=== PATIENT | male | born 1975 | race Caucasian/White ===

== ENCOUNTER 2018-08-11 11:28 | Emergency (ER) | payer OTHER ==
--- NOTE | 2018-08-11 11:32 | PDOC ---
History of Present Illness - General Chief Complaint: Pain Stated Complaint: LEFT KNEE PAIN Time Seen by Provider: 08/11/18 11:31 History Source: Patient, Family (son gas leak tester) Exam Limitations: No Limitations - History of Present Illness Initial Comments: 08/11/18 11:48 43 yo male pmh smoking and alcohol abuse presents to the ED for sudden onset left knee swelling that started 1 week ago. Pt states he was kneeling on the left knee on hardwood floors for work and after standing noticed sudden onset knee swelling without pain. Over the course of the week the swelling improved somewhat and denies pain at any time but was concerned about the swelling so he decided to come in. Pt did not take any OTC medications and did not see any other Physician for this concern. Denies F/C, changes or difficulty ambulating, weakness/sensory changes in the left leg or foot. Past History - Past Medical History Allergies/Adverse Reactions: Allergies Allergy/AdvReac Type Severity Reaction Status Date / Time No Known Allergies Allergy Verified 08/11/18 11:31 Home Medications: Ambulatory Orders No Home Medications 0 dose .ROUTE UTDICT 09/20/13 Thyroid Disease: No - Suicide/Smoking/Psychosocial Hx Smoking History: Current some day smoker Number of Cigarettes Smoked Daily: 10 Substance Use Type: None Review of Systems - Review of Systems Constitutional: No: Chills, Fever Musculoskeletal: No: Joint Pain, Muscle Weakness Integumentary: Yes: Other (swelling over left pre patellar region). No: Bruising Neurological: No: Numbness, Paresthesia, Tingling, Weakness, Unsteady Gait *Physical Exam - Physical Exam General Appearance: Yes: Nourished, Appropriately Dressed. No: Apparent Distress HEENT: positive: EOMI Respiratory/Chest: positive: Lungs Clear, Normal Breath Sounds Cardiovascular: positive: Regular Rhythm, Regular Rate, S1, S2. negative: Edema , JVD, Murmur Vascular Pulses: Dorsalis-Pedis (R): 3+, Doralis-Pedis (L): 3+ Extremity: positive: Normal Capillary Refill, Other (negative anterior, posterior drawer neg medial and lateral lig laxity, negative nata ). negative: Calf Tenderness Integumentary: positive: Normal Color, Dry, Warm Neurologic: positive: Fully Oriented, Alert, Normal Mood/Affect, Normal Response , Motor Strength 5/5 Medical Decision Making - Medical Decision Making 08/11/18 12:02 43 yo male presents to the ED with 1 weak of left knee swelling after kneeling without F/C, pain or changes in sensation/strength. Exam: AOX3 NAD left infrapatellar swelling without erythema, heat or pain. Normal ROM in all planes Negative orthopedic exam for ligament laxity/damage Equal sensation, pulses and strength bilateral lower ext Vitals WNL, no fever 3 view X ray no acute pathology DC with PCP and Ortho follow up along with NILESH bandage, RICE precautions and NSAIDS for swelling *DC/Admit/Observation/Transfer Diagnosis at time of Disposition: Bursitis Qualifiers: Bursitis location: knee Knee bursitis location: infrapatellar bursitis Laterality: left Qualified Code(s): M70.52 - Other bursitis of knee, left knee - Discharge Dispostion Condition at time of disposition: Good Decision to Admit order: No - Referrals Referrals: Kishor Gorman DO [Staff Physician] - - Patient Instructions Printed Discharge Instructions: DI for Bursitis Additional Instructions: Please make an appointment with your primary care doctor and the Orthopedic Surgeon referred to you within the next 24-48 hours. Rest, Ice, Compress and Elevate the knee for the next 1 week. Take over the counter Motrin every 6 hours for swelling. Use an NILESH bandage to compress the knee but take it off before bed time. Return to the emergency department for any new or worsening symptoms including but not limited to: worsening swelling leading to discoloration, heat, pain, inability to walk, fevers or chills or weakness/sensory changes in the left leg or foot. Thank you - Post Discharge Activity
--- NOTE | 2018-08-11 11:35 | PDOC ---
Attending Attestation - Resident Resident Name: Darell Freire - ED Attending Attestation I have performed the following: I have examined & evaluated the patient, The case was reviewed & discussed with the resident, I agree w/resident's findings & plan - HPI HPI: 08/11/18 11:50 43 y/o male with left knee pain for 1 week. Was working on knee and when he got up noticed large amount of swelling, Has not taken anything for the pain. No fall or trauma. No "pop" sound. Denies fever or chills. - Physicial Exam PE: 08/11/18 11:51 VSS Heart: RRR w/o murmur Lungs: CTA b/l, no wheezes EXT left knee full ROM, no tenderness, below knee swelling to the pretibial area , non tender, no fluctuance noted Nuero: grossly intact no focal deficits noted - Medical Decision Making 08/11/18 12:14 X-ray left knee: no fracture It appears pt has prepatelllar bursitis, will treat with NSAIDS Thomas wrap, follow up with Orthopedics If worsen return to ER Agree with resident plan Dr. Freire Findal diagnosis: Prepatellar bursitis
[2018-08-11 11:41] VITALS: BP 146/90; PULSE 90; TEMP 98.7; BMI 25.1
== END 2018-08-11 12:26 | disposition home or self-care (01) ==
LOC: FER 11:28
DX: M70.52 Other bursitis of knee, left knee (principal); F17.210 Nicotine dependence, cigarettes, uncomplicated; F10.10 Alcohol abuse, uncomplicated
CPT/HCPCS: 73562-TC-LT-FY; 99282-25

== ENCOUNTER 2022-10-05 12:09 | Inpatient (IN) | payer OTHER ==
[2022-10-05 12:18] VITALS: BMI 25.9
[2022-10-05] MEDS ORDERED: IBUPROFEN 600 MG TABLET (FP) PO ONE (12:38)
[2022-10-05] MEDS ORDERED: morphine CARPU-JECT 4 MG/1 ML DISP.SYRIN IVPUSH ONE ×2 (12:56→14:13)
[2022-10-05] MEDS ORDERED: morphine SULFATE 4 MG/ML VIAL ONE ×2 (13:13→14:14)
[2022-10-05 13:51] LABS: INR 1.17 (0.83-1.09); PROTHROMBIN TIME (PATIENT) 13.5 SEC (9.7-13.0)
[2022-10-05 13:53] LABS: HEMATOCRIT 31.9 % (35.4-49); HEMOGLOBIN 10.6 G/dL (11.7-16.9); MCHC 33.2 g/dl (32.0-35.9); MEAN CELL VOLUME 84.5 fl (80-96); MEAN PLT VOLUME 8.4 fl (7.5-11.1); PLATELET COUNT 377.1 10^3/uL (134-434); RBC 3.78 10^6/uL (4.00-5.60); WHITE BLOOD COUNT 8.5 10^3/uL (4.0-10.8)
[2022-10-05 13:54] LABS: ACTIVATED PTT 32.9 SECONDS (25.2-36.5)
[2022-10-05 13:56] LABS: PLATELET ESTIMATE ADEQUATE
[2022-10-05 13:59] LABS: ALBUMIN 3.1 g/dl (3.4-5.0); BILIRUBIN,TOTAL 1.1 mg/dl (0.2-1); CALCIUM 8.6 mg/dl (8.5-10); CREATININE 0.7 mg/dl (0.55-1.3); TOT PROT 7.3 g/dl (6.4-8.2)
[2022-10-05] MEDS ORDERED: LIDOCAINE HCL 1%, 10 MG/ML (20ML VIAL) ONE (14:09)
[2022-10-05] MEDS ORDERED: AZITHROMYCIN IVPB 500 MG in DEXTROSE 5%-WATER - 250 ML IVPB ONE (15:39)
[2022-10-05] MEDS ORDERED: cefTRIAXone SODIUM 1 GM VIAL ONE (15:47)
[2022-10-05] MEDS ORDERED: AZITHROMYCIN 500 MG VIAL IVPB ONE (15:47)
[2022-10-05] MEDS: NICOTINE 21 MG/24 HOURS TOPICAL PATCH TD SCH (16:30)
[2022-10-05] MEDS ORDERED: SODIUM CHLORIDE 1,000 ML IV STA (18:46)
[2022-10-05] MEDS ORDERED: DEXTROSE 5%-NORMAL SALINE 1,000 ML IV SCH (20:15)
[2022-10-05] MEDS ORDERED: ACETAMINOPHEN 1000 MG/100 ML BAG IVPB PRN (20:19)
[2022-10-05] MEDS ORDERED: guaiFENesin/D-METHORPHAN HB 10 ML UNIT-DOSE CUPS PO PRN (20:25)
[2022-10-06] MEDS ORDERED: morphine SULFATE 4 MG/ML VIAL ONE (01:50)
[2022-10-06] MEDS: DOCUSATE SODIUM 100 MG CAPSULE (FP) PO SCH ×4 (01:54→22:06)
[2022-10-06] MEDS: morphine SULFATE 4 MG/ML VIAL IVPUSH PRN ×2 (01:55→20:31)
[2022-10-06 08:44] LABS: CREATININE 0.6 mg/dl (0.55-1.3); MAGNESIUM 1.7 mg/dL (1.8-2.4); PHOSPHOROUS 2.7 mg/dl (2.5-4.9)
[2022-10-06] MEDS ORDERED: MAGNESIUM SULF 50% (8.12 MEQ/2 ML-1 GM VIAL) IVPB ONE (09:13)
[2022-10-06] MEDS: NICOTINE 21 MG/24 HOURS TOPICAL PATCH TD SCH (09:30)
[2022-10-06] MEDS ORDERED: MAGNESIUM 1GM/D5W - 1 GM/100 ML IVPB IVPB ONE (09:30)
[2022-10-06 09:47] LABS: BASO % 0.8 % (0-2.0); EOS % 3.1 % (0-4.5); HEMATOCRIT 29.8 % (35.4-49); HEMOGLOBIN 9.5 GM/dL (11.7-16.9); LYMPH % 22.3 % (8-40); MCH 26.8 pg (25.7-33.7); MEAN CELL VOLUME 83.6 fl (80-96); MEAN PLT VOLUME 8.5 fl (7.5-11.1); MONO % 5.9 % (3.8-10.2); NEUT % 67.9 % (42.8-82.8); PLATELET COUNT 383 10^3/uL (134-434); RBC 3.56 M/mm3 (4.00-5.60); RDW 27.7 % (11.9-15.9); WHITE BLOOD COUNT 9.5 K/mm3 (4.0-10.0)
[2022-10-06] MEDS: CEFTRIAXONE 1 GM in DEXTROSE 5%-WATER - 50 ML IVPB SCH (10:17)
[2022-10-06 10:59] LABS: ANISOCYTOSIS 1+; MACROCYTOSIS 0
[2022-10-06] MEDS: AZITHROMYCIN IVPB 500 MG/250 ML BAG IVPB SCH (11:22)
[2022-10-07] MEDS: ACETAMINOPHEN 1000 MG/100 ML BAG IVPB SCH ×3 (09:27→20:52)
[2022-10-07] MEDS: KETOROLAC TROMETHAMINE 30 MG/1 ML VIAL IVPUSH SCH ×2 (10:37→18:31)
[2022-10-07] MEDS: DOCUSATE SODIUM 100 MG CAPSULE (FP) PO SCH ×3 (10:38→21:01)
[2022-10-07] MEDS: NICOTINE 21 MG/24 HOURS TOPICAL PATCH TD SCH (10:38)
[2022-10-07] MEDS: CEFTRIAXONE 1 GM in DEXTROSE 5%-WATER - 50 ML IVPB SCH (10:38)
[2022-10-07 11:28] LABS: BASO % 1.2 % (0-2.0); EOS % 5.5 % (0-4.5); HEMATOCRIT 32.2 % (35.4-49); HEMOGLOBIN 10.3 GM/dL (11.7-16.9); LYMPH % 17.8 % (8-40); MCH 26.4 pg (25.7-33.7); MCHC 31.9 g/dl (32.0-35.9); MEAN CELL VOLUME 82.7 fl (80-96); MEAN PLT VOLUME 7.6 fl (7.5-11.1); MONO % 7.2 % (3.8-10.2); NEUT % 68.3 % (42.8-82.8); PLATELET COUNT 393 10^3/uL (134-434); RBC 3.89 M/mm3 (4.00-5.60); RDW 27.5 % (11.9-15.9); WHITE BLOOD COUNT 7.7 K/mm3 (4.0-10.0)
[2022-10-07 11:44] LABS: CALCIUM 8.4 mg/dL (8.5-10.1)
[2022-10-07 11:45] LABS: BLOOD UREA NITROGEN 9.6 mg/dL (7-18)
[2022-10-07 11:47] LABS: CREATININE 0.6 mg/dL (0.55-1.3); PHOSPHOROUS 2.6 mg/dL (2.5-4.9)
[2022-10-07] MEDS: AZITHROMYCIN IVPB 500 MG/250 ML BAG IVPB SCH (12:10)
[2022-10-08] MEDS: ACETAMINOPHEN 1000 MG/100 ML BAG IVPB SCH (00:49)
[2022-10-08] MEDS: KETOROLAC TROMETHAMINE 30 MG/1 ML VIAL IVPUSH SCH ×3 (04:13→17:11)
[2022-10-08 07:59] LABS: BASO % 1.4 % (0-2.0); EOS % 10.1 % (0-4.5); HEMATOCRIT 31.8 % (35.4-49); HEMOGLOBIN 10.1 GM/dL (11.7-16.9); LYMPH % 20.3 % (8-40); MCH 26.5 pg (25.7-33.7); MCHC 31.7 g/dl (32.0-35.9); MEAN CELL VOLUME 83.4 fl (80-96); MEAN PLT VOLUME 8.3 fl (7.5-11.1); MONO % 6.8 % (3.8-10.2); NEUT % 61.4 % (42.8-82.8); PLATELET COUNT 420 10^3/uL (134-434); RBC 3.82 M/mm3 (4.00-5.60); RDW 27.5 % (11.9-15.9); WHITE BLOOD COUNT 7.7 K/mm3 (4.0-10.0)
[2022-10-08 08:21] LABS: CALCIUM 8.2 mg/dL (8.5-10.1)
[2022-10-08 08:22] LABS: BLOOD UREA NITROGEN 12.2 mg/dL (7-18)
[2022-10-08 08:25] LABS: CREATININE 0.6 mg/dL (0.55-1.3); PHOSPHOROUS 3.4 mg/dL (2.5-4.9)
[2022-10-08] MEDS: DOCUSATE SODIUM 100 MG CAPSULE (FP) PO SCH ×2 (09:37→22:11)
[2022-10-08] MEDS: CEFTRIAXONE 1 GM in DEXTROSE 5%-WATER - 50 ML IVPB SCH (09:37)
[2022-10-08] MEDS: NICOTINE 21 MG/24 HOURS TOPICAL PATCH TD SCH (09:38)
[2022-10-08] MEDS: AZITHROMYCIN IVPB 500 MG/250 ML BAG IVPB SCH (10:16)
[2022-10-09] MEDS: KETOROLAC TROMETHAMINE 30 MG/1 ML VIAL IVPUSH SCH ×3 (02:15→17:18)
[2022-10-09] MEDS: DOCUSATE SODIUM 100 MG CAPSULE (FP) PO SCH ×2 (09:48→22:15)
[2022-10-09] MEDS: NICOTINE 21 MG/24 HOURS TOPICAL PATCH TD SCH (09:48)
[2022-10-09] MEDS: amLODIPine BESYLATE 2.5 MG TABLET (FP) PO SCH (09:48)
[2022-10-09] MEDS: CEFTRIAXONE 1 GM in DEXTROSE 5%-WATER - 50 ML IVPB SCH (09:48)
[2022-10-09] MEDS: AZITHROMYCIN IVPB 500 MG/250 ML BAG IVPB SCH (11:29)
[2022-10-09 14:09] LABS: RETICULOCYTES 1.62 % (0.5-1.5)
[2022-10-10] MEDS: KETOROLAC TROMETHAMINE 30 MG/1 ML VIAL IVPUSH SCH ×3 (02:00→17:22)
[2022-10-10 08:30] LABS: HEMATOCRIT 33.7 % (35.4-49); HEMOGLOBIN 10.7 GM/dL (11.7-16.9); MCH 26.5 pg (25.7-33.7); MCHC 31.7 g/dl (32.0-35.9); MEAN CELL VOLUME 83.6 fl (80-96); MEAN PLT VOLUME 8.2 fl (7.5-11.1); PLATELET COUNT 466 10^3/uL (134-434); RBC 4.03 M/mm3 (4.00-5.60); RDW 26.5 % (11.9-15.9); WHITE BLOOD COUNT 7.9 K/mm3 (4.0-10.0)
[2022-10-10 09:12] LABS: CALCIUM 8.5 mg/dL (8.5-10.1)
[2022-10-10 09:13] LABS: BLOOD UREA NITROGEN 8.7 mg/dL (7-18)
[2022-10-10] MEDS: CEFTRIAXONE 1 GM in DEXTROSE 5%-WATER - 50 ML IVPB SCH (09:14)
[2022-10-10] MEDS: FERROUS SO4 325 MG TABLET (FP) PO SCH (09:14)
[2022-10-10] MEDS: amLODIPine BESYLATE 2.5 MG TABLET (FP) PO SCH (09:14)
[2022-10-10] MEDS: DOCUSATE SODIUM 100 MG CAPSULE (FP) PO SCH ×2 (09:15→22:13)
[2022-10-10] MEDS: AZITHROMYCIN IVPB 500 MG/250 ML BAG IVPB SCH (09:15)
[2022-10-10] MEDS: NICOTINE 21 MG/24 HOURS TOPICAL PATCH TD SCH (09:15)
[2022-10-10 09:16] LABS: CREATININE 0.6 mg/dL (0.55-1.3)
[2022-10-11] MEDS: KETOROLAC TROMETHAMINE 30 MG/1 ML VIAL IVPUSH SCH (01:38)
[2022-10-11 07:50] VITALS: RESP 20
[2022-10-11 08:43] LABS: HEMATOCRIT 31.9 % (35.4-49); HEMOGLOBIN 10.3 GM/dL (11.7-16.9); MCH 26.5 pg (25.7-33.7); MCHC 32.4 g/dl (32.0-35.9); MEAN CELL VOLUME 81.8 fl (80-96); MEAN PLT VOLUME 8.2 fl (7.5-11.1); PLATELET COUNT 442 10^3/uL (134-434); RBC 3.89 M/mm3 (4.00-5.60); RDW 26.6 % (11.9-15.9); WHITE BLOOD COUNT 7.7 K/mm3 (4.0-10.0)
[2022-10-11 09:19] LABS: CALCIUM 8.6 mg/dL (8.5-10.1)
[2022-10-11 09:20] LABS: BLOOD UREA NITROGEN 8.1 mg/dL (7-18)
[2022-10-11 09:24] LABS: CREATININE 0.6 mg/dL (0.55-1.3)
[2022-10-11] MEDS: amLODIPine BESYLATE 2.5 MG TABLET (FP) PO SCH (10:15)
[2022-10-11] MEDS: NICOTINE 21 MG/24 HOURS TOPICAL PATCH TD SCH (10:16)
[2022-10-11] MEDS: AZITHROMYCIN IVPB 500 MG/250 ML BAG IVPB SCH (10:16)
[2022-10-11] MEDS: FERROUS SO4 325 MG TABLET (FP) PO SCH (10:16)
[2022-10-11] MEDS: CEFTRIAXONE 1 GM in DEXTROSE 5%-WATER - 50 ML IVPB SCH (10:16)
[2022-10-11] MEDS: DOCUSATE SODIUM 100 MG CAPSULE (FP) PO SCH (10:16)
[2022-10-11 10:49] VITALS: TEMP 98.4
[2022-10-11 15:25] VITALS: BP 142/72; PULSE 102
== END 2022-10-11 16:00 | disposition home or self-care (01) | DRG 135 ==
LOC: FER 12:09 → JERBED 15:55 → UNDOADMIN 15:55 → FM/S 15:55 → UNDOADMIN 10-06 01:39 → J4W 10-06 18:57
PROVIDERS: ADMIT Internal Medicine
PROC: 0W9B30Z Drainage of Left Pleural Cavity with Drainage Device, Percutaneous Approach (ICD-10-PCS; principal; 2022-10-05)
DX: S27.2XXA Traumatic hemopneumothorax, initial encounter (principal); J18.9 Pneumonia, unspecified organism; S22.41XA Multiple fractures of ribs, right side, initial encounter for closed fracture; J98.11 Atelectasis; D64.9 Anemia, unspecified; E22.2 Syndrome of inappropriate secretion of antidiuretic hormone; K59.00 Constipation, unspecified; J43.8 Other emphysema; F17.210 Nicotine dependence, cigarettes, uncomplicated; W17.89XA Other fall from one level to another, initial encounter; Y92.098 Other place in other non-institutional residence as the place of occurrence of the external cause
CPT/HCPCS: 0241U-QW; 36415; 71045-TC-FY; 71046-TC-FY; 71101-TC-LT-FY; 71250-TC; 80048; 80053; 82728; 82962; 83010; 83540; 83550; 83615; 83735; 84100; 84484; 85025; 85027; 85045; 85610; 85730; 93005; 97116-GP; 97163-GP; 99291

== ENCOUNTER 2022-10-26 11:47 | Emergency (ER) | payer OTHER ==
[2022-10-26 12:22] VITALS: RESP 20; TEMP 98.7; BMI 25.1
[2022-10-26 13:00] LABS: INR 1.08 (0.83-1.09); PROTHROMBIN TIME (PATIENT) 12.4 SEC (9.7-13.0)
[2022-10-26 13:01] LABS: HEMATOCRIT 34.9 % (35.4-49); MCH 27.7 pg (25.7-33.7); MCHC 34.5 g/dl (32.0-35.9); MEAN CELL VOLUME 80.5 fl (80-96); PLATELET COUNT 244.7 10^3/uL (134-434); RBC 4.34 10^6/uL (4.00-5.60); RDW 22.2 % (11.9-15.9); WHITE BLOOD COUNT 7.6 10^3/uL (4.0-10.8)
[2022-10-26 13:02] LABS: ACTIVATED PTT 36.4 SECONDS (25.2-36.5)
[2022-10-26 13:07] LABS: ALBUMIN 3.7 g/dl (3.4-5.0); BILIRUBIN,TOTAL 0.5 mg/dl (0.2-1); CREATININE 0.6 mg/dl (0.55-1.3); TOT PROT 7.5 g/dl (6.4-8.2)
[2022-10-26 13:22] LABS: PLATELET ESTIMATE ADEQUATE
[2022-10-26 15:08] VITALS: BP 115/71; PULSE 93
== END 2022-10-26 15:08 | disposition home or self-care (01) ==
LOC: FER 11:47
DX: S27.0XXA Traumatic pneumothorax, initial encounter (principal); J90 Pleural effusion, not elsewhere classified; W01.0XXA Fall on same level from slipping, tripping and stumbling without subsequent striking against object, initial encounter
CPT/HCPCS: 36415; 71250-TC; 80053; 85027; 85610; 85730; 86850; 86900; 86901; 99284-25; C9803-CS; U0003; U0005

== ENCOUNTER 2024-06-16 23:33 | Inpatient (IN) | payer OTHER ==
[2024-06-17 00:18] VITALS: BMI 22.4
[2024-06-17] MEDS ORDERED: NICOTINE POLACRILEX 4 MG GUM BUC PRN (00:41)
[2024-06-17] MEDS ORDERED: DICYCLOMINE HCL 10 MG CAPSULE PO PRN (00:41)
[2024-06-17] MEDS ORDERED: LOPERAMIDE HCL 2 MG CAPSULE PO PRN (00:41)
[2024-06-17] MEDS ORDERED: POLYETHYLENE GLYCOL (HEALTHYLAX) 3350 17 GM PACKET PO PRN (00:41)
[2024-06-17] MEDS ORDERED: MAGNESIUM HYDROX 2400MG/30ML ORAL SUSPENSION 30 ML CUP PO PRN (00:41)
[2024-06-17] MEDS ORDERED: IBUPROFEN 400 MG TABLET (FP) PO PRN (00:41)
[2024-06-17] MEDS ORDERED: ONDANSETRON *ODT* 4 MG TABLET SL PRN (00:41)
[2024-06-17] MEDS ORDERED: MAG HYDROX/AL HYDROX/SIMETH 30 ML UNIT-DOSE CUP PO PRN (00:41)
[2024-06-17] MEDS ORDERED: IBUPROFEN 600 MG TABLET (FP) PO PRN (00:41)
[2024-06-17] MEDS ORDERED: BISMUTH SUBSALICYLATE 524 MG/30 ML PO PRN (00:41)
[2024-06-17] MEDS ORDERED: ACETAMINOPHEN 325 MG TABLET (FP) PO PRN (00:41)
[2024-06-17] MEDS ORDERED: guaiFENesin 600 MG TABLET.ER (FP) PO PRN (00:41)
[2024-06-17] MEDS ORDERED: BENZONATATE 200 MG CAPSULE PO PRN (00:41)
[2024-06-17] MEDS ORDERED: NALOXONE (NARCAN) HCL 4 MG/0.1 ML SPRAY NS PRN (00:41)
[2024-06-17] MEDS ORDERED: BENZOCAINE/MENTHOL (CHLORASEPTIC ) LOZENGE MM PRN (00:41)
[2024-06-17] MEDS ORDERED: METOPROLOL TARTRATE 25 MG TABLET (FP) ONE (02:17)
[2024-06-17] MEDS ORDERED: hydrOXYzine PAMOATE 25 MG CAPSULE (FP) PO ONE (02:17)
[2024-06-17] MEDS: METOPROLOL TARTRATE 25 MG TABLET (FP) PO ONE (02:19)
[2024-06-17] MEDS: hydrOXYzine PAMOATE 25 MG CAPSULE (FP) PO PRN (02:20)
[2024-06-17] MEDS ORDERED: diazePAM 5 MG TABLET PO PRN (09:10)
[2024-06-17] MEDS: PRENATAL VITAMINS W/ FOLIC ACID TABLET (FP) PO SCH (10:09)
[2024-06-17] MEDS: diazePAM 5 MG TABLET PO SCH (10:09)
[2024-06-17] MEDS: NICOTINE 14 MG/24 HOURS TOPICAL PATCH TD SCH (10:09)
[2024-06-17] MEDS: METHOCARBAMOL 500 MG TABLET PO PRN (10:09)
[2024-06-17 14:36] LABS: POTASSIUM 3.8 mmol/L (3.5-5.1)
[2024-06-17 14:38] LABS: CALCIUM 8.5 mg/dL (8.5-10.1)
[2024-06-17 14:39] LABS: ALBUMIN 3.6 g/dl (3.4-5.0); BLOOD UREA NITROGEN 11.8 mg/dL (7-18)
[2024-06-17 14:40] LABS: HEMATOCRIT 40.7 % (35.4-49); HEMOGLOBIN 13.5 GM/dL (11.7-16.9); MCHC 33.2 g/dl (32.0-35.9); MEAN CELL VOLUME 93.4 fl (80-96); MEAN PLT VOLUME 10.6 fl (7.5-11.1); PLATELET COUNT 198 10^3/uL (134-434); RBC 4.36 M/mm3 (4.00-5.60); RDW 21.4 % (11.9-15.9); WHITE BLOOD COUNT 3.7 K/mm3 (4.0-10.0)
[2024-06-17 14:42] LABS: CREATININE 0.7 mg/dL (0.55-1.3)
[2024-06-17 14:43] LABS: BILIRUBIN,TOTAL 1.7 mg/dL (0.2-1)
[2024-06-17 14:44] LABS: TOT PROT 7.3 g/dl (6.4-8.2)
[2024-06-17] MEDS: MELATONIN 5 MG TABLETS PO SCH (22:11)
[2024-06-17] MEDS: THIAMINE 100 MG TABLET PO SCH (22:11)
[2024-06-19] MEDS: diazePAM 5 MG TABLET PO SCH (06:14)
[2024-06-19 12:19] LABS: CALCIUM 9.2 mg/dL (8.5-10.1)
[2024-06-19 12:20] LABS: ALBUMIN 3.4 g/dl (3.4-5.0); BLOOD UREA NITROGEN 6.7 mg/dL (7-18)
[2024-06-19 12:23] LABS: CREATININE 0.6 mg/dL (0.55-1.3)
[2024-06-19 12:24] LABS: BILIRUBIN,TOTAL 0.7 mg/dL (0.2-1)
[2024-06-19 12:27] LABS: TOT PROT 6.5 g/dl (6.4-8.2)
[2024-06-20] MEDS: diazePAM 5 MG TABLET PO SCH (05:34)
[2024-06-21] MEDS: diazePAM 5 MG TABLET PO ONE (05:28)
[2024-06-21 06:49] VITALS: RESP 16
[2024-06-21 09:06] VITALS: BP 156/85; PULSE 84; TEMP 98
[2024-06-21] MEDS: NALOXONE (NYS OPIOID OVERDOSE PROGRAM) 4 MG/0.1 ML SPRAY NS PRN (09:42)
== END 2024-06-21 09:45 | disposition home or self-care (01) | DRG 775 ==
LOC: YASAS 23:33 → Y6N 06-17 01:40
PROVIDERS: ADMIT Allergy & Immunology; ATTEND Surgery
PROC: HZ2ZZZZ Detoxification Services for Substance Abuse Treatment (ICD-10-PCS; principal; 2024-06-17)
DX: F10.230 Alcohol dependence with withdrawal, uncomplicated (principal); F17.210 Nicotine dependence, cigarettes, uncomplicated; F19.24 Other psychoactive substance dependence with psychoactive substance-induced mood disorder; R74.8 Abnormal levels of other serum enzymes; R76.11 Nonspecific reaction to tuberculin skin test without active tuberculosis; R73.9 Hyperglycemia, unspecified
CPT/HCPCS: 36415; 71046-TC-FY; 80053; 80305; 80307; 82962; 83036; 85027; 86780; 93005; 93010